=== PATIENT | female | born 1970 | race Caucasian/White ===

== ENCOUNTER 2016-08-20 16:25 | Emergency (ER) | payer OTHER ==
[2016-08-20 16:42] VITALS: BP 149/101
== END 2016-08-20 18:16 | disposition left against medical advice (07) ==
LOC: ER 16:25
DX: Z53.29 Procedure and treatment not carried out because of patient's decision for other reasons (principal)

== ENCOUNTER 2017-04-30 14:45 | Emergency (ER) | payer SELFPAY ==
[2017-04-30 14:54] VITALS: BP 147/83
--- NOTE | 2017-04-30 15:04 | ERNOTE ---
Upper Extremity HPI - Narrative Date of Service: 04/30/17 - General Extremities Pain Location: 3rd finger: right Time Seen by Provider: 04/30/17 14:54 Source: patient Exam Limitations: no limitations - Immun/Allergies/Home Medications Immunizations: IMMUNIZATION HX Immunizations Up to Date Yes History of Influenza Vaccine No Hx Pneumococcal Vaccination No Allergies/Adverse Reactions: Allergies Allergy/AdvReac Type Severity Reaction Status Date / Time No Known Allergies Allergy Verified 04/30/17 14:53 Home Medications: HOME MEDICATIONS Enalapril Maleate [Vasotec] 10 mg PO DAILY 11/23/13 [Last Taken Unknown] Beclomethasone Dipropionate [Qvar] 8.7 gm IH DAILY 04/09/16 [Last Taken Unknown] Albuterol Sulfate [Albuterol Sulfate 2.5 MG/0.5ML] 1 vial IH Q4H PRN 08/20/16 [ Last Taken Unknown] Albuterol Sulfate [Ventolin Hfa] 2 puff IH Q4H PRN 08/20/16 [Last Taken Unknown] - History of Present Illness Narrative: Pt. comes in with c/o R middle finger pain after she hit her dog yesterday. Pt. also has bruising and states teat her pain is only the middle bone of this finger. Pt. denies nay numbness, tingling, SOB, CP, NVD, fever, or recent illness. Pt. denies any prehospital treatment or alleviating factors but states that movement exacerbates the pain. Review of Systems - Review of Systems Constitutional: Present: no symptoms reported. Absent: recent illness, fever, chills, weakness, fatigue, malaise EYE: Present: no symptoms reported ENT: Present: no symptoms reported Respiratory: Present: no symptoms reported. Absent: shortness of breath, cough , wheezing Cardiology: Present: no symptoms reported. Absent: chest pain, palpitations, edema Gastrointestinal/Abdominal: Present: no symptoms reported. Absent: nausea, vomiting, diarrhea Genitourinary: Present: no symptoms reported Musculoskeletal: Present: joint pain - middle finger. Absent: back pain Skin: Present: no symptoms reported. Absent: rash, change in hair/nails Neurological: Present: no symptoms reported. Absent: headache, dizziness/light- headedness, numbness, tingling All Other Systems: All systems neg except as marked - Patient's Past Medical History Patient History - Medical: No pertinent hx Patient History - Cardiac/Respiratory: Asthma, Hypertension Patient History - Cancer: No Hx of Cancer Patient History - Surgical Procedures: , Hysterectomy, Other, Orthopedic Patient History - Other: None LMP (females 10-50): other - Social History Living Situations: home Abuse History: No History of abuse Psych History: Hx of Anxiety, Hx of Depression Smoking Status: Current every day smoker - Immunizations Immunizations Up to Date: Yes Hx Pneumococcal Vaccination: No History of Influenza Vaccine: No Physical Exam - Physical Exam General Appearance: Present: wd/wn, alert, no apparent distress Head Exam: Present: normal inspection, no evidence of injury Eye Exam: Normal inspection: bilateral Respiratory: Present: no respiratory distress, normal breath sounds, no accessory muscle use, chest nontender, lungs clear Cardiovascular/Chest: Present: regular rate, rhythm, no murmur, normal peripheral pulses Back Exam: Present: normal inspection, normal range of motion, no CVA tenderness , no vertebral tenderness Extremity Exam: Present: normal range of motion, bony tenderness - R third medial phalanx, joint swelling - R second and third fingers Neurological Exam: Present: alert, oriented, normal mood/affect, no motor/ sensory deficits Skin Exam: Present: warm/dry, other - ecchymosis lateral and volar second and third finger ED Progress - Vital Signs Patient's Vital Signs:: I have reviewed the patient's vital signs. Vital Signs: Vital Signs 04/30/17 14:49 Temperature 36.2 C L Pulse Rate 79 Respiratory 16 Rate Blood Pressure 147/83 O2 Sat by Pulse 99 Oximetry - X-Ray X-Ray #1 X-Ray: finger Interpretation: Reviewed by me X-ray Comments: No acute ossious abnormality - Progress/Reassessment Chief Complaint: Hand Injury/Pain Progress:: Unchanged Departure Clinical Impression: Finger sprain Qualifiers: Encounter type: initial encounter Finger: middle finger Sprain of finger site: interphalangeal joint Laterality: right Qualified Code(s): S63.632A - Sprain of interphalangeal joint of right middle finger, initial encounter - Departure Disposition: Home self-care Condition: Good Instructions: Finger Sprain, [id number] Additional Instructions: Please leave n splint for a week and then may remove after a week and return to normal activity in a week. Please follow up with primary provider in 2-3 days if not improved. Please take Ibuprofen up to 600mg for pain every 6 hours.
== END 2017-04-30 15:35 | disposition home or self-care (01) ==
LOC: ER 14:45
PROC: 2W3JX1Z Immobilization of Right Finger using Splint (ICD-10-PCS; principal; 2017-04-30)
DX: S63.632A Sprain of interphalangeal joint of right middle finger, initial encounter (principal); X58.XXXA Exposure to other specified factors, initial encounter; Y93.89 Activity, other specified; I10 Essential (primary) hypertension; F17.200 Nicotine dependence, unspecified, uncomplicated